=== PATIENT | female | born 1985 | race Caucasian/White ===

== ENCOUNTER 2018-09-21 19:22 | Inpatient (IN) | payer MEDICAID ==
[~2018-09-21] VITALS: Ht 167.6 cm; Wt 49.9 kg
[2018-09-21 20:10] LABS: BASOPHIL % 1.4 % (0-2); PLATELET COUNT 266 x10^3mcL (130-400); RED CELL DISTRIBUTION WIDTH 14.3 % (11.5-14.5)
[2018-09-21 20:23] LABS: CALCIUM 8.5 mg/dL (8.5-10.1); CARBON DIOXIDE 29.6 mmol/L (21-32); CHLORIDE SERUM 103 mmol/L (98-107); CREATININE SERUM 0.7 mg/dL (0.6-1.0); GFR1 > 60 mL/min; GLUCOSE SERUM 90 mg/dL (74-106); POTASSIUM SERUM 3.6 mmol/L (3.5-5.1); SODIUM SERUM 139 mmol/L (136-145)
[2018-09-21 20:29] LABS: ALBUMIN 3.6 g/dL (3.4-5.0); ALKALINE PHOSPHATASE 68 U/L (46-116); ALT/SGPT 28 U/L (14-59); AST/SGOT 21 U/L (15-37); BILIRUBIN TOTAL 0.38 mg/dL (0.20-1.00)
[2018-09-21 20:49] LABS: AMPHETAMINE QUAL UR POSITIVE (See below)
[2018-09-21 21:12] LABS: TOTAL PROTEIN, SERUM 6.8 g/dL (6.4-8.2)
[2018-09-22 20:55] VITALS: BP 103/62
[2018-09-22 21:13] LABS: PHOSPHOROUS 4.2 mg/dL (2.5-4.9)
[2018-09-22 21:15] LABS: CHOLESTEROL/HDL RATIO 2.2
[2018-09-22 21:26] LABS: T3 TOTAL 0.91 ng/mL
[2018-09-22 22:05] LABS: FREE T4 0.96 ng/dL (0.76-1.46); FREE THYROXINE INDEX 2.6 ug/dL (1.4-4.5)
[2018-09-23 06:21] LABS: CALCIUM 8.2 mg/dL (8.5-10.1); CARBON DIOXIDE 30.5 mmol/L (21-32); CHLORIDE SERUM 108 mmol/L (98-107); CREATININE SERUM 0.9 mg/dL (0.6-1.0); GFR1 > 60 mL/min; GLUCOSE SERUM 96 mg/dL (74-106); PHOSPHOROUS 4.6 mg/dL (2.5-4.9); POTASSIUM SERUM 3.5 mmol/L (3.5-5.1); SODIUM SERUM 143 mmol/L (136-145)
[2018-09-23 06:31] VITALS: BP 100/56
[2018-09-23 06:32] LABS: BASOPHIL % 0.7 % (0-2); PLATELET COUNT 246 x10^3mcL (130-400); RED CELL DISTRIBUTION WIDTH 13.6 % (11.5-14.5)
[2018-09-23 14:48] LABS: microscopic required? NO
[2018-09-23 15:09] LABS: urine erythrocyte NEGATIVE (NEGATIVE)
[2018-09-23 20:40] VITALS: BP 101/64
[2018-09-24 05:53] VITALS: BP 96/57
[2018-09-24 06:15] LABS: BASOPHIL % 0.7 % (0-2); PLATELET COUNT 236 x10^3mcL (130-400)
[2018-09-24 06:37] LABS: CALCIUM 8.3 mg/dL (8.5-10.1); CARBON DIOXIDE 26.6 mmol/L (21-32); CHLORIDE SERUM 107 mmol/L (98-107); CREATININE SERUM 0.7 mg/dL (0.6-1.0); GFR1 > 60 mL/min; GLUCOSE SERUM 90 mg/dL (74-106); POTASSIUM SERUM 3.6 mmol/L (3.5-5.1); SODIUM SERUM 141 mmol/L (136-145)
[2018-09-24 09:00] VITALS: BP 109/57
[2018-09-24 18:34] VITALS: BP 106/60
[2018-09-24 19:20] VITALS: BP 101/59
[2018-09-25 10:11] VITALS: BP 92/52
[2018-09-25 18:26] VITALS: BP 97/57
[2018-09-25 20:54] VITALS: Ht 167.6 cm; Wt 49.9 kg
== END 2018-09-25 20:00 | disposition left against medical advice (07) | DRG 753 ==
LOC: ED 19:22 → MU 09-22 17:17 → IC 09-22 17:17 → DU 09-22 19:30 → MU 09-23 01:31
PROVIDERS: Emergency Medicine; Internal Medicine
DX: F31.9 Bipolar disorder, unspecified (principal); N17.0 Acute kidney failure with tubular necrosis; R45.851 Suicidal ideations; F15.10 Other stimulant abuse, uncomplicated; F41.9 Anxiety disorder, unspecified; S60.812A Abrasion of left wrist, initial encounter; S60.811A Abrasion of right wrist, initial encounter; X78.9XXA Intentional self-harm by unspecified sharp object, initial encounter; F14.10 Cocaine abuse, uncomplicated; F11.10 Opioid abuse, uncomplicated; Y93.89 Activity, other specified; Y92.89 Other specified places as the place of occurrence of the external cause; Z59.0 Homelessness; Z68.1 Body mass index [BMI] 19.9 or less, adult
CPT/HCPCS: 84439; G0480; Q0092; Q0162

== ENCOUNTER 2018-09-25 21:08 | Inpatient (IN) | payer MEDICAID ==
[~2018-09-25] VITALS: Ht 167.6 cm; Wt 54.9 kg
[2018-09-25 21:20] VITALS: Ht 167.6 cm; Wt 54.9 kg
[2018-09-25 22:05] LABS: AMPHETAMINE QUAL UR NONE DETECTED (See below)
[2018-09-25 23:18] VITALS: BP 0120/12
[2018-09-26 05:50] VITALS: BP 93/52
[2018-09-26 08:22] VITALS: BP 98/63
[2018-09-26 21:22] VITALS: BP 110/55
[2018-09-27 06:50] VITALS: BP 99/59
[2018-09-27 08:37] VITALS: BP 99/59
[2018-09-27 18:42] VITALS: BP 102/72
[2018-09-27 21:25] VITALS: BP 107/72
[2018-09-28 06:32] VITALS: BP 107/72
[2018-09-28 10:38] VITALS: BP 99/57
[2018-09-28 19:14] VITALS: BP 102/75
[2018-09-28 22:07] VITALS: BP 105/58
[2018-09-29 05:25] VITALS: BP 96/65
[2018-09-29 08:56] VITALS: BP 91/56
[2018-09-29 17:28] VITALS: BP 91/62
[2018-09-29 20:44] VITALS: BP 109/69
[2018-09-30 06:12] VITALS: BP 99/56
[2018-09-30 10:11] VITALS: BP 97/63
[2018-09-30 17:59] VITALS: BP 108/70
[2018-09-30 18:37] LABS: microscopic required? NO
[2018-09-30 19:16] LABS: urine erythrocyte NEGATIVE (NEGATIVE)
[2018-09-30 22:50] VITALS: BP 95/59
[2018-10-01 07:11] VITALS: BP 92/55
[2018-10-01 09:00] VITALS: BP 141/63
[2018-10-01 09:05] VITALS: BP 103/45
[2018-10-01] MEDS ORDERED: TOPIRAMATE25 M2 PO (15:41)
[2018-10-01 15:53] VITALS: BP 103/45
[2018-10-01 21:15] VITALS: BP 102/68
== END 2018-10-01 22:20 | disposition home or self-care (01) | DRG 751 ==
LOC: ED 21:08 → MU 22:36
PROVIDERS: Emergency Medicine; Family Medicine
DX: F33.9 Major depressive disorder, recurrent, unspecified (principal); N17.0 Acute kidney failure with tubular necrosis; G93.40 Encephalopathy, unspecified; R45.851 Suicidal ideations; F15.10 Other stimulant abuse, uncomplicated; F14.10 Cocaine abuse, uncomplicated; F11.10 Opioid abuse, uncomplicated; Z68.1 Body mass index [BMI] 19.9 or less, adult
CPT/HCPCS: 82962; 90658; J3230